=== PATIENT | male | born 1970 | race Caucasian/White ===

== ENCOUNTER 2017-05-25 18:18 | Emergency (ER) | payer SELFPAY ==
[2017-05-25 18:27] VITALS: BMI 29.9
[2017-05-25 18:30] VITALS: BP 149/93; PULSE 96; RESP 17; TEMP 98.7; O2SAT 100
[2017-05-25] MEDS ORDERED: TDAP Vaccine 0.5 mL Syr IM ONE (19:10)
--- NOTE | 2017-05-25 19:19 | ED PDOC ---
Arrival/HPI - General Historian: Patient - History of Present Illness Time/Duration: Prior to Arrival Symptom Onset: Sudden Activities at Onset: Other (soccer) Context: Exertion <Norma Camacho - Last Filed: 05/25/17 20:24> <Harvey Lemus P - Last Filed: 05/25/17 22:40> - General Chief Complaint: Trauma Time Seen by Provider: 05/25/17 19:10 - History of Present Illness Narrative History of Present Illness (Text): 05/25/17 19:11 46M w/no sig PMH evaluated for trauma. Pt reports playing soccer with his children on concrete, when he dove for a ball resulting in superficial abrasions of his forearms. Pt reports coming directly to the ED for evaluations , did not clean his wounds prior to arrival. Pain is minimal. Denies pain in any other body part, N/V/F/C, SOB, CP, LOC, head trauma, other complaints. States that he had a tetanus vaccine prior [place] from [place], within the last year. PMH: Denies PSH: Right 5th digit and wrist surgery All: NKDA SH: Denies tobacco, ETOH or illicit drug use PMD: Denies 05/25/17 19:19 (Norma Camacho) Past Medical History - Provider Review Nursing Documentation Reviewed: Yes - Tetanus Immunization Tetanus Immunization: Refused - Psychiatric Hx Substance Use: No <Norma Camacho - Last Filed: 05/25/17 20:24> Family/Social History - Physician Review Nursing Documentation Reviewed: Yes Family/Social History: No Known Family HX Smoking Status: Never Smoked Hx Alcohol Use: No Hx Substance Use: No <Norma Camacho - Last Filed: 05/25/17 20:24> Allergies/Home Meds <Norma Camacho - Last Filed: 05/25/17 20:24> <Harvey Lemus P - Last Filed: 05/25/17 22:40> Allergies/Adverse Reactions: Allergies No Known Allergies Allergy (Verified 05/25/17 18:27) Home Medications: Home Meds Medication Instructions Recorded Confirmed No Known Home Med 05/25/17 05/25/17 Review of Systems - Physician Review All systems were reviewed & negative as marked: Yes - Review of Systems Constitutional: Normal Eyes: Normal ENT: Normal Respiratory: Normal Cardiovascular: Normal Gastrointestinal: Normal Musculoskeletal: Normal Skin: Skin Lesions (superficial abrasions of B/L forearms) Neurological: Normal. absent: Headache <Norma Camacho - Last Filed: 05/25/17 20:24> Physical Exam Vital Signs Reviewed: Yes Temperature: Afebrile Blood Pressure: Hypertensive Pulse: Regular Respiratory Rate: Normal Appearance: Positive for: Non-Toxic, Comfortable Pain Distress: None Mental Status: Positive for: Alert and Oriented X 3 - Systems Exam Head: Present: Atraumatic, Normocephalic Extroacular Muscles: Present: EOMI Conjunctiva: Present: Normal Mouth: Present: Moist Mucous Membranes Nose (External): Present: Atraumatic Neck: Present: Normal Range of Motion. No: MIDLINE TENDERNESS, Paraspinal Tenderness Respiratory/Chest: Present: Clear to Auscultation, Good Air Exchange. No: Respiratory Distress, Accessory Muscle Use Cardiovascular: Present: Regular Rate and Rhythm, Normal S1, S2. No: Murmurs Abdomen: Present: Normal Bowel Sounds. No: Tenderness, Distention, Peritoneal Signs Back: Present: Normal Inspection Upper Extremity: Present: Tenderness. No: Normal Inspection, Cyanosis, Edema Lower Extremity: Present: Normal Inspection. No: Edema Neurological: Present: GCS=15, CN II-XII Intact, Speech Normal Skin: Present: Warm, Dry, Abrasion (Left forearm with large superficial abrasion on lateral aspect, approx 12 x 6 cm; left lateral wrist with small superficial abrasion, approximately 1 x 2 cm; right lateral proximal forearm/ elbow area with small superficial abrasion approx 3 x 4 cm). No: Normal Color Psychiatric: Present: Alert, Oriented x 3, Normal Insight, Normal Concentration <Norma Camacho - Last Filed: 05/25/17 20:24> Vital Signs Temp Pulse Resp BP Pulse Ox 05/25/17 18:27 98.7 F 96 H 17 149/93 H 100 Medical Decision Making <Norma Camacho - Last Filed: 05/25/17 20:24> <Harvey Lemus - Last Filed: 05/25/17 22:40> ED Course and Treatment: 05/25/17 19:24 Pt seen/evaluated, reports that he recently had tetanus vaccine and is currently declining tetanus booster. Instructed tech to clean wound/dress it. 05/25/17 19:34 Pt seen by attending, ok to go home after wounds were cleaned/dressed. (Norma Camacho) seen and examined with the resident. No significant bony injury and no lacerations requiring suture small abrasions to the arm topical wound care only No antibiotics 05/25/17 22:37 (Harvey Lemus) - Medication Orders Current Medication Orders: Discontinued Medications Tetanus/Reduced Diphtheria/Acell Pertussis (Boostrix Vaccine Inj) 0.5 ml IM .ONCE ONE Stop: 05/25/17 19:11 Last Admin: 05/25/17 19:26 Dose: - PA / LINE WELDER / Resident Statement / has examined the patient and agrees with the treatment plan. <Harvey Lemus - Last Filed: 05/25/17 22:40> Disposition/Present on Arrival - Present on Arrival Any Indicators Present on Arrival: No History of DVT/PE: No History of Uncontrolled Diabetes: No Urinary Catheter: No History of Decub. Ulcer: No History Surgical Site Infection Following: None - Disposition Have Diagnosis and Disposition been Completed?: Yes Disposition Time: 19:33 Patient Plan: Discharge <Norma Camacho - Last Filed: 05/25/17 20:24> - Present on Arrival Any Indicators Present on Arrival: No History of DVT/PE: No History of Uncontrolled Diabetes: No Urinary Catheter: No History of Decub. Ulcer: No History Surgical Site Infection Following: None - Disposition Have Diagnosis and Disposition been Completed?: Yes <Harvey Lemus - Last Filed: 05/25/17 22:40> - Disposition Diagnosis: Abrasion forearm Disposition: HOME/ ROUTINE Condition: STABLE Discharge Instructions (ExitCare): Acute Wound Care (ED), Abrasion (ED) Additional Instructions: Keep dressing over left forearm clean and dry, ok to remove after 2 days. You do not need to put anything else on it, let it dry and scab over. Forms: [employer] (N[place]uan)
== END 2017-05-25 20:30 | disposition home or self-care (01) ==
LOC: ED 18:18
DX: S50.812A Abrasion of left forearm, initial encounter (principal); S50.811A Abrasion of right forearm, initial encounter; X58.XXXA Exposure to other specified factors, initial encounter; Y93.66 Activity, soccer

== ENCOUNTER 2018-11-17 12:49 | Outpatient (CLI) | payer MEDICAID | END 2018-11-17 12:50 | disposition home or self-care (01) | LOC: RAD 12:49 ==